=== PATIENT | male | born 1995 ===

== ENCOUNTER 2017-07-04 21:58 | Inpatient (IN) | payer MEDICAID ==
[2017-07-04 21:59] VITALS: BMI 24.4
[2017-07-05] MEDS ORDERED: Lidocaine 2% w Epi 1:200,000 Pf Inj IJ ONE (00:03)
[2017-07-05] MEDS ORDERED: Lidocaine 2% w Epi 1:100,000 Inj IJ ONE (00:03)
[2017-07-05 00:16] LABS: BASO % 0.6 % (0.0-2.0); EOS # 0.1 K/uL (0.0-0.7); EOS % 2.1 % (0.0-4.0); HEMOGLOBIN 15.3 g/dL (12.0-18.0); LYMPH # 2.1 K/uL (1.0-4.3); LYMPH % 39.2 % (20.0-40.0); MEAN CELL VOLUME 86.1 fL (80.0-94.0); MEAN CORPUSCULAR HGB CONC 33.6 g/dL (33.0-37.0); MONO # 0.9 K/uL (0.0-0.8); MONO % 15.9 % (0.0-10.0); NEUT # 2.3 K/uL (1.8-7.0); NEUT % 42.2 % (50.0-75.0); NRBC % 0.1 % (0.0-2.0); RBC 5.27 Mil/uL (4.40-5.90); WHITE BLOOD COUNT 5.5 K/uL (4.8-10.8)
--- NOTE | 2017-07-05 00:32 | C.PDOC ---
Time Seen by Provider: 07/04/17 23:19 Chief Complaint (Nursing): Psychiatric Evaluation History Per: Patient, EMS, Family Onset/Duration Of Symptoms: Other (Just SONOGRAPHY TECHNOLOGIST) Current Symptoms Are (Timing): Still Present Suicide/Self Injury Attempted (Context): Cut Wrists Modifying Factor(s): Alcohol Severity: Moderate Associated Symptoms: Depression Additional History Per: Prior Records Past Medical History Reviewed: Historical Data, Nursing Documentation, Vital Signs Vital Signs: Last Vital Signs Temp 97.7 F 07/05/17 00:48 Pulse 98 H 07/05/17 00:48 Resp 20 07/05/17 00:48 BP 132/77 07/05/17 00:48 Pulse Ox 97 07/05/17 00:48 - Medical History PMH: Depression Family History: States: Unknown Family Hx - Social History Hx Alcohol Use: Yes Hx Substance Use: Yes Review Of Systems Except As Marked, All Systems Reviewed And Found Negative. Constitutional: Negative for: Fever, Weakness Cardiovascular: Negative for: Chest Pain Respiratory: Negative for: Shortness of Breath Gastrointestinal: Negative for: Vomiting, Abdominal Pain Musculoskeletal: Negative for: Neck Pain Neurological: Negative for: Weakness, Numbness Physical Exam - Physical Exam Appears: Non-toxic, No Acute Distress Skin: Normal Color, Warm, Dry Head: Atraumatic, Normacephalic Eye(s): bilateral: PERRL, EOMI Neck: Normal ROM, Supple Cardiovascular: Rhythm Regular Respiratory: Normal Breath Sounds, No Accessory Muscle Use Gastrointestinal/Abdominal: Soft, No Tenderness Extremity: Normal ROM, Other (multiple horizontal lacerations on volar aspect of left forearm. Most of which are very superficial, however one is gaping and another is slightly gaping. ) Pulses: Left Radial: Normal Neurological/Psych: Oriented x3, Normal Motor, Normal Sensation ED Course And Treatment - Laboratory Results Result Diagrams: 07/05/17 00:11 07/05/17 00:11 O2 Sat by Pulse Oximetry: 98 Pulse Ox Interpretation: Normal Progress Note: Pt is medically stable for psychiatric evaluation and/or admission. Laceration - Laceration Repair Left forearm 1 Wound Length (In cm): 5 Description Of Wound: Linear, Clean Wound Cleansed With: Betadine Anesthesia: Lidocaine 2%, With Epi Wound Examination: Irrigated With Saline, No FB With Wound Exploration, No Tendon Injury With Wound Exploration Wound Closure: [place] Wound Complexity: Simple Left forearm 2 Wound Length (In cm): 5 Description Of Wound: Linear, Clean Wound Cleansed With: Betadine Anesthesia: Lidocaine 2%, With Epi Wound Examination: Irrigated With Saline, No Tendon Injury With Wound Exploration, Foreign Material Removed W/Irrigation Wound Closure: [place] Wound Complexity: Simple Disposition - Disposition Disposition Time: 01:00 Condition: STABLE - Clinical Impression Clinical Impression: Depression, Suicidal ideations, Self-inflicted laceration of wrist Physician Patient Turnover Patient Signed Over To: Young Dunaway Handoff Comments: to f/up crisis clive morales.
[2017-07-05 00:40] LABS: ACETAMINOPHEN < 10.0 ug/mL (10.0-30.0); SALICYLATE < 1.0 mg/dL 1
[2017-07-05 00:41] LABS: ALB/GLOB RATIO 1.4 (1.0-2.1); ALBUMIN 4.6 g/dL (3.5-5.0); ALT/SGPT 32 U/L (21-72); AST/SGOT 26 U/L (17-59); BLOOD UREA NITROGEN 13 mg/dL (9-20); CALCIUM 8.9 mg/dl (8.6-10.4); GFR AFRICAN-AMERICAN > 60; GFR NON-AFRICAN AMERICAN > 60
[2017-07-05 00:42] LABS: URINE BILIRUBIN NEGATIVE (NEGATIVE); URINE BLOOD NEGATIVE (NEGATIVE); URINE CLARITY Clear (Clear); URINE COLOR Yellow (YELLOW); URINE GLUCOSE (UA) NORMAL (Normal); URINE LEUKOCYTE ESTERASE NEG Leu/uL (Negative); URINE NITRATE NEGATIVE (NEGATIVE); URINE PROTEIN 1+ mg/dL (NEGATIVE); URINE UROBILINOGEN NORMAL mg/dL (0.2-1.0)
[2017-07-05 01:13] LABS: BARBITURATES, UR NEGATIVE (NEGATIVE); BENZODIAZEPINES, UR NEGATIVE (NEGATIVE); OPIATES, UR NEGATIVE (NEGATIVE); PHENCYCLIDINE, UR NEGATIVE (NEGATIVE)
--- NOTE | 2017-07-05 05:10 | PCM.BM ---
<Marlyn Coffman - Last Filed: 07/05/17 05:08> Treatment assets and liabiliti Patient Assests: cooperative, insightful, self-reliant, ADL independent, physically healthy, good support system, negotiates basic needs, cognitively intact, good interpersonal skills - Milieu Protocol Maintain good personal hygiene: daily Encourage regular showers, daily Remind patient to perform daily oral care, other Remind patient to perform daily oral care, other Assist patient to perform ADL's (prn) Maintain personal safety: every shift Monitor environment for contraband/sharps , other Educate patient to report safety concerns to staff (prn) Medication safety: Monitor for expected outcome, potential side effects: every shift, Assess barriers to learning: every shift, Assess readiness for medication education: every shift <Tee Alexander - Last Filed: 07/07/17 08:55> - Diagnosis (1) Alcohol abuse Status: Acute Interventions: 07/07/17 08:55 * Assess 7x/week regarding severity of withdrawal * Educate regarding risks, benefits, side effects and alternatives of medications * Use Motivational Interviewing for abstinence * Use CBT for relapse prevention * Medication management for withdrawal symptoms * Encourage medication assisted treatment * (2) Depression Status: Acute Interventions: 07/07/17 08:55 * Assess/adjust medications daily and /or as needed * See patient on an individual basis 7x/week to assess symptoms of depression * Monitor for side effects & effectiveness of medications * <Ansley Scanlon - Last Filed: 07/07/17 11:03> Family Contact Family involvement: Family/SO is involved Family contact: Patient agrees to contact Family contact name: Yeimi Crespo-mother Family contacted how many times per week?: 2 - Goals for Treatment Patient goals for treatment: "I need an outpatient program." Discharge/Continuing Care - Education Needs Education Needs: Patient Medication, Patient Coping Skills - Discharge Discharge Criteria: Tolerates medication w/o severe side effects, Reduction of target symptoms Discharge to:: Home, With Family - Treatment Team Participation Discussed with Family/SO: No Was Patient/Family/SO present at Treatment Team Meeting: Yes
--- NOTE | 2017-07-05 17:46 | PCM.PSYCH ---
Initial Psychiatric Evaluation - Initial Psychiatric Evaluation Type of Admission: Voluntary Legal Status: Capacity Chief Complaint (in patient's own words): "Not well, depressed" History of Present Illness and Precipitating Events: The pt is seen, chart reviewed and case discussed He is a 21 yo LM, single, no child, works at [employer] and lives with his father. He is here for a suicidal gesture yesterday when he cut his left forearm in 2 places and at work. His friend saw and called 911. He claims he was upset about his GF leaving him few days before and that he doesn't get along with his father. He used to live with his mo but after another adeline gesture (knife and rope that time) around [place] last year, he was hospitalized in [place] for 1 -2 nights and moved to his fa after that. He reports depressive sxs but denies manic and psychotic sxs. He admits to having anger issues and yesterday's incident was also anger- related. He drinks alcohol and used to drink "a lot" He used cocaine and MJ in the past. Smokes 1 ppd past psych hx: As above Family psych hx: Fa had psych issues, he claims Medical hx: Denies Current Medications: Active Medications Generic Name Dose Route Start Last Admin Trade Name Freq PRN Reason Stop Dose Admin Cephalexin Monohydrate 500 mg 07/05/17 11:45 07/05/17 17:14 Keflex PO 07/12/17 11:46 500 mg Q6H [facility] Administration Escitalopram Oxalate 5 mg 07/05/17 11:45 07/05/17 13:17 Lexapro PO 5 mg DAILY [facility] Administration Hydroxyzine HCl 50 mg 07/05/17 11:31 07/05/17 13:19 Atarax PO 50 mg Q6H PRN Administration Anxiety Ibuprofen 600 mg 07/05/17 11:31 07/05/17 13:17 Motrin Tab PO 600 mg Q6H PRN Administration Pain, moderate (4-7) Pneumococcal Polyvalent Vaccine 0.5 ml 07/08/17 10:00 Pneumovax 23 Vaccine IM 07/08/17 10:01 .ONCE ONE Trazodone HCl 100 mg 07/05/17 11:31 Desyrel PO HS PRN Insomnia Past Psychiatric History - Past Psychiatric History Previous Treatment History: Inpatient Pertinent Medical Hx (Current Medical&Sleep Prob, Allergies): Allergies Allergy/AdvReac Type Severity Reaction Status Date / Time peanut Allergy Severe ANAPHYLAXIS Verified 07/04/17 22:18 buPROPion SR [Wellbutrin SR 150 MG] 150 mg PO DAILY #30 tab 06/13/17 Review of Systems - Psychiatric Psychiatric: Abnormal Sleep Pattern, Anhedonia, Anxiety, Change in Appetite, Depression, Difficulty Concentrating, Irritability. absent: Hallucinations, Homicidal Ideation, Suicidal Ideation Mental Status Examination - Personal Presentation Personal Presentation: Looks stated age - Affect Affect: Constricted - Motor Activity Motor Activity: Calm - Reliability in Providing Information Reliability in Providing Information: Good - Speech Speech: Organized - Mood Mood: Depressed, Anxious - Formal Thought Process Formal Thought Process: No Impairment - Cognitive Functions Orientation: Person, Place, Situation, Time Sensorium: Alert Attention/Concentration: Attentive Estimate of Intelligence: Average Judgement: Intact, as evidence by: Insight regarding need for hospitalization Memory: Recent intact, as evidence by: Ability to recall events of the day, Remote intact, as evidenced by: Abilit to recall sig. life events - Risk Risk: Diminished functioning - Strength & Assets Inventory Strength & Assets Inventory: Cooperative - Limitations Limitations: Other DSM 5 DX - DSM 5 DSM 5 Diagnosis: Major depressive d/o - recurrent, severe, without psychosis Alcohol use d/o - moderate Cocaine use d/o - in early remission Personality d/o - unspecified (Alzada II traits) - Recommended/Plan of Treatment Treatment Recommendations and Plan of Treatment: Start Lexapro Keflex for scars All risks, benefits and alternatives of medications, including no medications, discussed and the patient understood and agreed. Attend groups and activities Individual therapy Psychoeducation and support Encourage compliance with meds and after care Refer to outpatient program Teach healthy lifestyle methods, i.e. diet, exercise, meditation Smoking cessation 32 min Projected ELOS: 5-6 days Prognosis: good w treatment - Smoking Cessation Smoking Cessation Initiated: Yes
--- NOTE | 2017-07-06 23:00 | PCM.PYCHPN ---
Psychiatric Progress Note - Psychiatric Progress Note Patient seen today, length of contact: 16 min Patient Chief Complaint: "Still not good" Problems Identified/Issues Discussed: The pt is seen, chart reviewed, case discussed with staff. The pt is compliant with medications and reports no side-effects. Symptoms are improving but needs more time to stabilize. After care discussed, support and psychoeducation given. OH used re his substance use Medication Change: No (increase lexapro tomorrow) Medical Record Reviewed: Yes Mental Status Examination - Cognitive Function Orientation: Person, Place, Situation, Time Memory: Intact Attention: WNL Concentration: Poor Association: WNL Fund of Knowledge: WNL - Mood Mood: Depressed, Anxious - Affect Affect: Constricted - Speech Speech: Appropriate - Formal Thought Process Formal Thought Process: No Impairment - Suicidal Ideation Suicidal Ideation: No - Homicidal Ideation Homicidal Ideation: No Goal/Treatment Plan - Goal/Treatment Plan Need for Continued Stay: Discharge may exacerbated symptoms, Severe functional impairment Progress Toward Problem(s) and Goals/Treatment Plan: Lexapro 10 mg Keflex for scars All risks, benefits and alternatives of medications, including no medications, discussed and the patient understood and agreed. Attend groups and activities Individual therapy Psychoeducation and support Encourage compliance with meds and after care Refer to outpatient program Teach healthy lifestyle methods, i.e. diet, exercise, meditation Smoking cessation
[2017-07-07 06:23] VITALS: O2SAT 97
--- NOTE | 2017-07-07 12:19 | PCM.PYCHPN ---
Psychiatric Progress Note - Psychiatric Progress Note Patient seen today, length of contact: 16 min Patient Chief Complaint: "Still not good" Problems Identified/Issues Discussed: The pt is seen, chart reviewed, case discussed with staff. The pt is compliant with medications and reports no side-effects. Symptoms are improving but needs more time to stabilize. After care discussed, support and psychoeducation given. IN used re his substance use Medication Change: Yes (Lexapro 10 mg) Medical Record Reviewed: Yes Mental Status Examination - Cognitive Function Orientation: Person, Place, Situation, Time Memory: Intact Attention: WNL Concentration: Poor Association: WNL Fund of Knowledge: WNL - Mood Mood: Depressed, Anxious - Affect Affect: Constricted - Speech Speech: Appropriate - Formal Thought Process Formal Thought Process: No Impairment - Suicidal Ideation Suicidal Ideation: No - Homicidal Ideation Homicidal Ideation: No Goal/Treatment Plan - Goal/Treatment Plan Need for Continued Stay: Discharge may exacerbated symptoms, Severe functional impairment Progress Toward Problem(s) and Goals/Treatment Plan: Lexapro 10 mg Keflex for scars All risks, benefits and alternatives of medications, including no medications, discussed and the patient understood and agreed. Attend groups and activities Individual therapy Psychoeducation and support Encourage compliance with meds and after care Refer to outpatient program Teach healthy lifestyle methods, i.e. diet, exercise, meditation Smoking cessation
[2017-07-08] MEDS ORDERED: Pneumococcal 23-Valent Vaccine IM ONE (10:00)
[2017-07-08] MEDS ORDERED: Influenza Vaccine 60 mcg/0.5 mL SYR (4YR UP) IM ONE (10:00)
--- NOTE | 2017-07-08 12:12 | PCM.PYCHPN ---
Psychiatric Progress Note - Psychiatric Progress Note Patient seen today, length of contact: 16 min Patient Chief Complaint: "Stressed" Problems Identified/Issues Discussed: The pt is seen, chart reviewed, case discussed with staff. Heel Cover Softener spoke with him using CBT and ID. His mother will come tomorrow for a meeting. He is "stressed" about things he had done in the past and about his future. How to deal with these issues discussed. No longer suicidal but still depressed. No side effects from medications, on meds. Medication Change: No Medical Record Reviewed: Yes Mental Status Examination - Cognitive Function Orientation: Person, Place, Situation, Time Memory: Intact Attention: WNL Concentration: Poor Association: WNL Fund of Knowledge: WNL - Mood Mood: Depressed, Anxious - Affect Affect: Constricted - Speech Speech: Appropriate - Formal Thought Process Formal Thought Process: No Impairment - Suicidal Ideation Suicidal Ideation: No - Homicidal Ideation Homicidal Ideation: No Goal/Treatment Plan - Goal/Treatment Plan Need for Continued Stay: Discharge may exacerbated symptoms, Severe functional impairment Progress Toward Problem(s) and Goals/Treatment Plan: Lexapro 10 mg Keflex for scars All risks, benefits and alternatives of medications, including no medications, discussed and the patient understood and agreed. Attend groups and activities Individual therapy Psychoeducation and support Encourage compliance with meds and after care Refer to outpatient program Teach healthy lifestyle methods, i.e. diet, exercise, meditation Smoking cessation
--- NOTE | 2017-07-09 14:26 | CP.PCM.CON ---
<Rahat Vásquez - Last Filed: 07/09/17 21:30> History of Present Illness - History of Present Illness History of Present Illness: 21 year old male with no past medical history came to [facility] after attempting to hurt himself. The patient reports recently breaking up with his significant other in the recent weeks. The patient states that he drank too much that night and cut himself with the razor blades that owens's use on his left forearm. The patient states that he's been dealing with depression for a couple of years and the breakup was the inciting factor. The patient reports this is the first time attempting to hurt himself. Currently the patient denies any auditory hallucinations, visual hallucinations, suicidal ideation or homicidal ideation. The patient denies any chest pain, shortness of breath, fevers, chills, nausea, vomiting, changes in vision, headaches, lightheadedness , dizziness, syncopal episodes, abdominal pain, sore throat, or any other complaints. PMD: None Past medical history: None Medications: Denies Allergies: Peanut Surgical history: Tonsillectomy Family psychiatric history: Mom: Depression, Twin sister: Depression Social history: Occasional cocaine user (Last time 06/08/17). Smokes 1ppd x7 years. Drinks alcohol daily. Review of Systems - Constitutional Constitutional: absent: Chills, Daytime Sleepiness, Headache, Snoring - EENT Eyes: absent: Blurred Vision, Discharge, Requires Corrective Lenses, Sees Flashes, Other Visual Disturbances, Loss of Vision Ears: absent: Ear Discharge, Dizziness Nose/Mouth/Throat: absent: Nasal Congestion, Nasal Trauma, Nose Pain, Bleeding Gums, Halitosis, Mouth Pain - Cardiovascular Cardiovascular: absent: Chest Pain, Chest Pain at Rest, Irregular Heart Rhythm, Leg Edema, Pedal Edema, Radiating Pain, Syncope - Respiratory Respiratory: absent: Cough, Dyspnea, Hemoptysis, Pain on Inspiration - Gastrointestinal Gastrointestinal: absent: Coffee Ground Emesis, Dyspepsia, Fecal Incontinence, Loose Stools, Nausea, Vomiting - Genitourinary Genitourinary: absent: Change in Urinary Stream, Nocturia, Urinary Urgency, Bladder Distension - Musculoskeletal Musculoskeletal: absent: Arthralgias, Atrophy, Myalgias, Tingling - Integumentary Integumentary: absent: Changing Lesions, Lesions, Swelling - Neurological Neurological: absent: Abnormal Hearing, Numbness, Syncope, Tremor, Vertigo, Weakness - Psychiatric Psychiatric: absent: Anhedonia, Anxiety, Behavioral Changes, Hallucinations, Mood Swings, Panic Attacks - Endocrine Endocrine: absent: Polydipsia, Polyphagia, Polyuria - Hematologic/Lymphatic Hematologic: absent: Easy Bruising Past Patient History - Infectious Disease Hx of Infectious Diseases: None - Past Social History Smoking Status: Heavy Smoker > 10 Cigarettes Daily - CARDIAC Hx Cardiac Disorders: No Hx Hypertension: No - PULMONARY Hx Respiratory Disorders: No Hx Tuberculosis: No - NEUROLOGICAL Hx Neurological Disorder: No HX Cerebrovascular Accident: No Hx Seizures: No - HEENT Hx HEENT Problems: No - RENAL Hx Chronic Kidney Disease: No - ENDOCRINE/METABOLIC Hx Endocrine Disorders: No - HEMATOLOGICAL/ONCOLOGICAL Hx Blood Disorders: No Hx Cancer: No Hx Human Immunodeficiency Virus (HIV): No - INTEGUMENTARY Hx Dermatological Problems: No - MUSCULOSKELETAL/RHEUMATOLOGICAL Hx Musculoskeletal Disorders: No - GASTROINTESTINAL Hx Gastrointestinal Disorders: No - GENITOURINARY/GYNECOLOGICAL Hx Genitourinary Disorders: No Hx Sexually Transmitted Disorders: No - PSYCHIATRIC Hx Substance Use: Yes - SURGICAL HISTORY Hx Surgeries: No Hx Tonsillectomy: Yes - ANESTHESIA Hx Anesthesia: No Meds Allergies/Adverse Reactions: Allergies Allergy/AdvReac Type Severity Reaction Status Date / Time peanut Allergy Severe ANAPHYLAXIS Verified 07/04/17 22:18 - Medications Medications: Current Medications Cephalexin Monohydrate (Keflex) 500 mg PO Q6H [facility] Stop: 07/12/17 10:01 Last Admin: 07/09/17 13:25 Dose: 500 mg Escitalopram Oxalate (Lexapro) 10 mg PO DAILY [facility] Last Admin: 07/09/17 09:27 Dose: 10 mg Hydroxyzine HCl (Atarax) 50 mg PO Q6H PRN PRN Reason: Anxiety Last Admin: 07/05/17 13:19 Dose: 50 mg Ibuprofen (Motrin Tab) 600 mg PO Q6H PRN PRN Reason: Pain, moderate (4-7) Last Admin: 07/05/17 13:17 Dose: 600 mg Trazodone HCl (Desyrel) 100 mg PO HS PRN PRN Reason: Insomnia Last Admin: 07/08/17 22:11 Dose: 100 mg Physical Exam - Head Exam Head Exam: ATRAUMATIC, NORMAL INSPECTION, NORMOCEPHALIC - Eye Exam Eye Exam: EOMI, Normal appearance, PERRL. absent: Periorbital tenderness Pupil Exam: NORMAL ACCOMODATION, PERRL. absent: Irregular, Unequal - ENT Exam ENT Exam: Mucous Membranes Moist, Normal Oropharynx - Respiratory Exam Respiratory Exam: Clear to Auscultation Bilateral, NORMAL BREATHING PATTERN. absent: Chest Wall Tenderness, Prolonged Expiratory Phase, Respiratory Distress - Cardiovascular Exam Cardiovascular Exam: REGULAR RHYTHM, RRR, +S1, +S2. absent: Gallop, Rubs - GI/Abdominal Exam GI & Abdominal Exam: Normal Bowel Sounds, Soft. absent: Hypoactive Bowel Sounds , Organomegaly, Tenderness - Extremities Exam Additional comments: left lacerations with uriel. - Back Exam Back exam: NORMAL INSPECTION. absent: CVA tenderness (L), CVA tenderness (R), paraspinal tenderness - Neurological Exam Neurological exam: Alert, CN II-XII Intact, Oriented x3 - Psychiatric Exam Psychiatric exam: Normal Affect, Normal Mood - Skin Skin Exam: Dry, Intact, Normal Color, Warm Results - Vital Signs Recent Vital Signs: Last Vital Signs Temp 97.6 F 07/09/17 06:50 Pulse 92 H 07/09/17 06:50 Resp 20 07/09/17 06:50 BP 108/71 07/09/17 06:50 Pulse Ox 97 07/07/17 06:00 - Labs Result Diagrams: 07/05/17 00:11 07/05/17 00:11 Assessment & Plan - Assessment and Plan (Free Text) Assessment: 21 year old with past medical history of cocaine abuse who was admitted for Suicidal ideation. Plan: 1. Suicidal ideation (2/2 to left forearm laceration from razor blade) -8 [place] were removed today. No signs of infections or discharge. -Continue current antibiotic regimen. -Patient denies AH,VH, SI, or HI. -Managment per Psychiatry 2. Smoking cessation -Advised patient to stop. Patient not yet ready to quit. -Nicoderm patch offered and he declined. -Counseled on cessation. 3.Cocaine abuse -Last use June 08, 2018. -Counseled the patient on cessation. Disposition: Patient uriel removed. Will SIGN OFF at this time. Feel free to consult us again if needed. <Cristofer Hoffmann H - Last Filed: 07/10/17 07:24> Meds - Medications Medications: Current Medications Cephalexin Monohydrate (Keflex) 500 mg PO Q6H [facility] Stop: 07/12/17 10:01 Last Admin: 07/10/17 01:04 Dose: 500 mg Escitalopram Oxalate (Lexapro) 10 mg PO DAILY [facility] Last Admin: 07/09/17 09:27 Dose: 10 mg Hydroxyzine HCl (Atarax) 50 mg PO Q6H PRN PRN Reason: Anxiety Last Admin: 07/05/17 13:19 Dose: 50 mg Ibuprofen (Motrin Tab) 600 mg PO Q6H PRN PRN Reason: Pain, moderate (4-7) Last Admin: 07/05/17 13:17 Dose: 600 mg Quetiapine Fumarate (Seroquel) 100 mg PO HS [facility] Last Admin: 07/09/17 21:07 Dose: 100 mg Trazodone HCl (Desyrel) 50 mg PO HS PRN PRN Reason: Insomnia Last Admin: 07/09/17 21:08 Dose: 50 mg Results - Vital Signs Recent Vital Signs: Last Vital Signs Temp 98.3 F 07/10/17 06:41 Pulse 69 07/10/17 06:41 Resp 18 07/10/17 06:41 BP 89/51 L 07/10/17 06:41 Pulse Ox 97 07/07/17 06:00 - Labs Result Diagrams: 07/05/17 00:11 07/05/17 00:11 Attending/Attestation - Attestation I have personally seen and examined this patient.: Yes I have fully participated in the care of the patient.: Yes I have reviewed all pertinent clinical information: Yes Notes (Text): 07/10/17 07:24 Medical attending: Patient was seen and examined by me with the medical dir. I reviewed the above note by medical dir and agree. We came and saw the patient, he was not in any acute distress, he was able to ambulate in the hallways on his own. He had some uriel over his forearm area. The lacerations are not bleeding. They are not erythematous. There were not painful. The uriel were removed. He's are been placed on Keflex, we agree with this. So at this time please reconsult us if needed thank you Cristofer Hoffmann
--- NOTE | 2017-07-09 14:49 | PCM.PYCHPN ---
Psychiatric Progress Note - Psychiatric Progress Note Patient seen today, length of contact: 25 min Patient Chief Complaint: "A little better" Problems Identified/Issues Discussed: The pt is seen, chart reviewed, case discussed with staff. Radiotelegrapher spoke with him using CBT and [place]. No longer suicidal but still depressed. No side effects from medications, on meds. Family meeting held - mo has some new rules and probation period He understood and he will look for a job, IOP (SW will help) and make peace w father Medication Change: Yes (seroquel for sleep) Medical Record Reviewed: Yes Mental Status Examination - Cognitive Function Orientation: Person, Place, Situation, Time Memory: Intact Attention: WNL Concentration: Poor Association: WNL Fund of Knowledge: WNL - Mood Mood: Depressed, Anxious - Affect Affect: Constricted - Speech Speech: Appropriate - Formal Thought Process Formal Thought Process: No Impairment - Suicidal Ideation Suicidal Ideation: No - Homicidal Ideation Homicidal Ideation: No Goal/Treatment Plan - Goal/Treatment Plan Need for Continued Stay: Discharge may exacerbated symptoms, Severe functional impairment Progress Toward Problem(s) and Goals/Treatment Plan: Lexapro 10 mg Seroquel 100 mg hs Keflex for scars All risks, benefits and alternatives of medications, including no medications, discussed and the patient understood and agreed. Attend groups and activities Individual therapy Psychoeducation and support Encourage compliance with meds and after care Refer to outpatient program Teach healthy lifestyle methods, i.e. diet, exercise, meditation Smoking cessation
[2017-07-10 06:41] VITALS: RESP 18
--- NOTE | 2017-07-10 22:18 | PCM.PYCHPN ---
Psychiatric Progress Note - Psychiatric Progress Note Patient seen today, length of contact: 16 min Patient Chief Complaint: "Nervous" Problems Identified/Issues Discussed: The pt is seen, chart reviewed, case discussed with staff. The pt is compliant with medications and reports no side-effects. Symptoms are improving but needs more time to stabilize. After care discussed, support and psychoeducation given. SW is getting him an appointment. Medication Change: Yes (seroquel for sleep) Medical Record Reviewed: Yes Mental Status Examination - Cognitive Function Orientation: Person, Place, Situation, Time Memory: Intact Attention: WNL Concentration: Poor Association: WNL Fund of Knowledge: WNL - Mood Mood: Depressed, Anxious - Affect Affect: Constricted - Speech Speech: Appropriate - Formal Thought Process Formal Thought Process: No Impairment - Suicidal Ideation Suicidal Ideation: No - Homicidal Ideation Homicidal Ideation: No Goal/Treatment Plan - Goal/Treatment Plan Need for Continued Stay: Discharge may exacerbated symptoms, Severe functional impairment Progress Toward Problem(s) and Goals/Treatment Plan: Lexapro 10 mg Seroquel 100 mg hs Keflex for scars All risks, benefits and alternatives of medications, including no medications, discussed and the patient understood and agreed. Attend groups and activities Individual therapy Psychoeducation and support Encourage compliance with meds and after care Refer to outpatient program Teach healthy lifestyle methods, i.e. diet, exercise, meditation Smoking cessation
[2017-07-11 06:55] VITALS: BP 106/62; PULSE 82; TEMP 97.5
--- NOTE | 2017-07-11 10:14 | PCM.PYCHDC ---
Mental Status Examination - Mental Status Examination Orientation: Person, Place, Situation, Time Memory: Intact Mood: Anxious Affect: Broad Speech: Appropriate Attention: WNL Concentration: WNL Association: WNL Fund of Knowledge: WNL Formal Thought Process: No Impairment Suicidal Ideation: No Current Homicidal Ideation?: No Discharge Summary - Discharge Note Reason for Hospitalization: Feeling angry, depressed and suicidal... Psychiatric History (includes Medical, Family, Personal Hx): Previous admission , treatment Consultations:: List each consultation separately and include: 1. Reason for request. 2. Findings. 3. Follow-up Consultations: Medicine is consulted for the injury in forearm. [place] are removed. Summary of Hospital Course include:: 1. Description of specific treatment plan utilized for patients during their course of treatmen. 2. Summarize the time- course for resolution of acute symptoms and/or regressed behaviors. 3. Describe issues identified and worked on during hospitalization. 4. Describe medication utilized. 5. Describe medical problems identified and treated. 6. Reassessment of suicide risk Summary of Hospital Course: The pt is seen, chart reviewed and case discussed. On admission: He is a 21 yo LM, single, no child, works at [employer] and lives with his father. He is here for a suicidal gesture yesterday when he cut his left forearm in 2 places and at work. His friend saw and called 911. He claims he was upset about his GF leaving him few days before and that he doesn't get along with his father. He used to live with his mo but after another adeline gesture (knife and rope that time) around [employer] last year, he was hospitalized in [place] for 1 -2 nights and moved to his after that. He reports depressive sxs but denies manic and psychotic sxs. He admits to having anger issues and yesterday's incident was also anger- related. He drinks alcohol and used to drink "a lot" He used cocaine and MJ in the past. Smokes 1 ppd Past psych hx: As above Family psych hx: Fa had psych issues, he claims Medical hx: Denies Hospital course: The pt was admitted and started on treatment with psychotherapy, support, psychoeducation and medications. [place] and CBT used. The pt attended groups and activities, as well as milieu therapy. All the risks and benefits of medications are discussed and the patient understood and agreed. The pt improved with the treatments provided. We held a family meeting which went well. He will live with his mo but med ties with his father. After care discussed with the patient. He will attend an outpatient program in [place]. 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 Follow after care plan as discussed. Use relapse prevention skills Return to ER or call 911 if suicidal, homicidal or symptoms relapse. Stay away from stress, alcohol and drugs. See primary doctor regularly and get labs. Prescriptions/Medication Reconciliation: Cephalexin [Keflex] 500 mg PO Q6H #12 cap Escitalopram [Lexapro] 10 mg PO DAILY #30 tab QUEtiapine [Seroquel] 100 mg PO HS #30 tab traZODone [Desyrel] 100 mg PO HS PRN #30 tab PRN Reason: Insomnia - Smoking Cessation Smoking Cessation Medication prescribed: No - Antipsychotic Medications Pt discharged on 2 or more routine antipsychotic medications: No
== END 2017-07-11 11:15 | disposition home or self-care (01) | DRG 430 ==
LOC: C.ER 21:58 → C.5E 07-05 03:00
PROVIDERS: ADMIT Psychiatry & Neurology Psychiatry; ATTEND Psychiatry & Neurology Psychiatry
PROC: GZHZZZZ Group Psychotherapy (ICD-10-PCS; principal; 2017-07-05)
PROC: GZ56ZZZ Individual Psychotherapy, Supportive (ICD-10-PCS; 2017-07-05)
DX: F33.2 Major depressive disorder, recurrent severe without psychotic features (principal); F14.21 Cocaine dependence, in remission; T14.91XA Suicide attempt, initial encounter; F17.210 Nicotine dependence, cigarettes, uncomplicated; S51.812A Laceration without foreign body of left forearm, initial encounter; Z72.89 Other problems related to lifestyle; X78.8XXA Intentional self-harm by other sharp object, initial encounter; F60.9 Personality disorder, unspecified